=== PATIENT | female | born 1945 | race Two or more races ===

== ENCOUNTER 2016-05-09 09:40 | Day surgery (SDC) | payer BC ==
[~2016-05-09] VITALS: Ht 170.2 cm; Wt 125.0 kg
[2016-05-09] VITALS (13 sets, daily range): BP systolic 150–188; BP diastolic 63–82; PULSE 70–90; RESP 11–19; Ht 170.2 cm; Wt 125.0 kg
[~2016-05-09 09:40] MED LIST: CEFAZOLIN 2 GM/50 ML (PMX) 50 ML IVPB ONE; EPHEDrine SULFATE 50 MG/5 ML SYG ONE; SOD CHLORIDE 0.9% 1,000 ML IV SCH
--- NOTE | 2016-05-09 10:56 | RADRPT ---
PROCEDURE: XR Chest. CLINICAL INDICATION: Preoperative, breast cancer TECHNIQUE: Single frontal view of the chest was obtained. COMPARISON: None FINDINGS: The heart is within normal limits. The thoracic aorta is calcified. There is elevation of the right diaphragm. The lungs are clear. There is no pleural effusion or pneumothorax. RPTAT: AA IMPRESSION: No acute disease. Calcified aorta consistent with atherosclerotic disease. .Torsten Blake MD, MD Date Time Electronically viewed and signed by .Torsten Blake MD, on 05/09/2016 10:55 .S/
[2016-05-09] MEDS ORDERED: ATOR40TA68 PO (10:57)
[2016-05-09] MEDS ORDERED: ASPI325T4 PO (10:57)
[2016-05-09] MEDS ORDERED: METF-382 PO (10:57)
[2016-05-09] MEDS ORDERED: AMLO1CAP15 PO (10:57)
[2016-05-09] MEDS ORDERED: LOSA1TAB20 PO (10:57)
[2016-05-09] MEDS ORDERED: LANT3I SC (10:57)
[2016-05-09] MEDS ORDERED: GLIM4TAB PO (10:57)
[2016-05-09] MEDS ORDERED: LIRA0.6P2 SQ (10:57)
[2016-05-09] MEDS ORDERED: METO25TA7 PO (10:57)
[2016-05-09 10:58] LABS: BASOPHILS % 0.5 % (0.0-2.0); EOSINOPHILS # 0.4 10^3/ul (0.0-0.5); EOSINOPHILS % 4.7 % (0.0-7.0); HEMATOCRIT 39.6 % (37.0-47.0); HEMOGLOBIN 13.4 g/dl (12.0-16.0); LYMPHOCYTES # 2.5 10^3/ul (0.8-2.9); LYMPHOCYTES % 31.7 % (15.0-51.0); MEAN CORPUSCULAR HEMOGLOBIN 29.6 pg (29.0-33.0); MEAN CORPUSCULAR HGB CONC 33.8 g/dl (32.0-37.0); MEAN CORPUSCULAR VOLUME 87.8 fl (82.0-101.0); MEAN PLATELET VOLUME 9.5 fl (7.4-10.4); MONOCYTE # 0.6 10^3/ul (0.3-0.9); MONOCYTES % 8.1 % (0.0-11.0); NEUTROPHIL # 4.3 10^3/ul (1.6-7.5); PLATELET COUNT 134 10^3/UL (140-440); RED BLOOD COUNT 4.51 10^6/ul (4.20-5.40); RED CELL DISTRIBUTION WIDTH 13.1 % (11.5-14.5); UNCORRECTED WBC 7.8 10^3/ul (4.8-10.8); WHITE BLOOD COUNT 7.8 10^3/ul (4.8-10.8)
[2016-05-09 11:07] LABS: CONDITION 1
[2016-05-09 11:09] LABS: INR 1.03; PROTIME 13.5 Sec (12.2-14.2); PT RATIO 1.1
[2016-05-09 11:28] LABS: CALCIUM 8.6 mg/dl (8.4-10.2); CREATININE 0.51 mg/dl (0.44-1.00)
[2016-05-09] MEDS ORDERED: D5W-0.45 NACL + KCL 20 MEQ 1,000 ML IV SCH (13:43)
[2016-05-09] MEDS ORDERED: MIDAZOLAM 1 MG/ML 2 ML INJ ONE (13:49)
[2016-05-09] MEDS ORDERED: LIDOCAINE 2% (SDV) 5 ML INJ ONE (13:49)
[2016-05-09] MEDS ORDERED: PROPOFOL 20 ML ONE (13:49)
[2016-05-09] MEDS ORDERED: ACETAMINOPHEN 1000MG/100ML IV 100 ML IVPB PRN (14:00)
[2016-05-09] MEDS ORDERED: morphine 2 MG INJ IV PRN (14:00)
[2016-05-09] MEDS ORDERED: ONDANSETRON 4 MG INJ IV PRN ×2 (14:00→14:30)
[2016-05-09] MEDS ORDERED: ETOMIDATE 20 MG INJ ONE ×2 (14:01→14:23)
[2016-05-09] MEDS ORDERED: FENTAnyl 50 MCG/ML VIAL ONE (14:09)
[2016-05-09] MEDS ORDERED: ISOSULFAN BLUE 1% 5 ML INJ SC ONE (14:10)
[2016-05-09] MEDS ORDERED: FAMOTIDINE 20 MG INJ ONE (14:13)
[2016-05-09] MEDS ORDERED: METOCLOPRAMIDE 10 MG INJ ONE (14:13)
[2016-05-09] MEDS ORDERED: ONDANSETRON 4 MG INJ ONE (14:13)
[2016-05-09] MEDS ORDERED: HYDROmorphONE 2 MG/ML SYG ONE (14:20)
[2016-05-09] MEDS ORDERED: HYDROmorphONE (0.2 MG/ML) 10ML SYG IV PRN (14:30)
[2016-05-09] MEDS ORDERED: PROCHLORPERAZINE 10 MG INJ IV PRN (14:30)
[2016-05-09] MEDS ORDERED: OXYCODONE/ACETAMINOPHEN (5/325) TAB PO PRN (14:30)
[2016-05-09] MEDS ORDERED: hydrALAzine 20 MG INJ IV PRN ×2 (14:30→17:00)
[2016-05-09] MEDS ORDERED: MEPERIDINE 25 MG INJ IV PRN (14:30)
[2016-05-09] MEDS ORDERED: DIPHENHYDRAMINE 50 MG INJ IV PRN (14:30)
[2016-05-09] MEDS ORDERED: FENTAnyl 50 MCG/ML VIAL IV PRN (14:30)
[2016-05-09] MEDS ORDERED: LABETALOL HCL 20MG INJ IV PRN (14:30)
[2016-05-09 14:43] LABS: PARTIAL THROMBOPLASTIN TIME 22.6 Sec (25.0-35.0)
[2016-05-09] MEDS ORDERED: DEXTROSE 50% 50 ML SYRINGE IV PRN ×2 (17:00)
[2016-05-09] MEDS ORDERED: GLUCOSE GEL 15 GRAM TUBE BUCCAL PRN (17:00)
[2016-05-09] MEDS ORDERED: GLUCOSE GEL 15 GRAM TUBE PO PRN ×2 (17:00)
[2016-05-09] MEDS ORDERED: GLUCAGON 1 MG INJ IM PRN (17:00)
--- NOTE | 2016-05-09 17:11 | OPR ---
DATE OF OPERATION: 05/09/2016 PREOPERATIVE DIAGNOSIS: Locally advanced right breast cancer. POSTOPERATIVE DIAGNOSIS: Locally advanced right breast cancer. OPERATION PERFORMED: Right partial mastectomy and axillary dissection. ANESTHESIA: General. ANESTHESIOLOGIST: Dr. Guerrero SURGEON: Prem Lopez MD LOADING UNIT TOOL SETTER: Dr. Guthrie INDICATIONS FOR PROCEDURE: The patient is an unfortunate 70-year-old female who presented with a la rge firm mass in the upper outer quadrant of her right breast and clinically palpable axillary lymph adenopathy. She was counseled as to the risks versus benefits of surgery. She consented and was sc heduled for surgery. DESCRIPTION OF PROCEDURE: The patient was brought to the operating theater, placed under general an esthesia. The right breast and axillary region was prepped and draped in usual sterile fashion. At tention was first directed to performing partial mastectomy. The firm palpable mass was at approxim ately the 9 to 11 o'clock location of the right breast. A curvilinear incision was made over it. S ubcutaneous tissue was dissected with cautery. Wide circumferential dissection of the tissue associ ated with the mass then took place, taking care to attempt to ensure adequate margin. The specimen was elevated, transected, oriented, and sent for permanent pathologic analysis. The attention was t hen directed to the right axilla. A 5 cm incision was made in the right axillary hairline. Subcuta neous tissue was dissected with cautery down to the clavipectoral fascia. Dissection continued ante riorly until the border of the pectoralis major muscle was identified. Subsequently the pectoralis minor muscle was identified. Blunt dissection along the chest wall allowed for visualization of the long thoracic nerve which was kept out of harm's way. There was visually obvious evidence of metas tatic disease. More superiorly, the axillary vein was dissected from medial to lateral. The thorac odorsal neurovascular bundle was then identified, dissected throughout its course, and kept out of h arm's way. Load bearing tissue between the long thoracic nerve and the thoracodorsal nerve was meti culously harvested. Significant lymphovascular structures were controlled with either Hemoclips or the LigaSure device. In this fashion, the entire level 1 and level 2 lymph segundo basin was resected and removed and sent for permanent pathologic analysis. The wound was irrigated. Minimal bleeding was controlled with cautery. A #10 M[place]gasque Atul-Genao drain was then brought through the right m id axillary line. It was cut to size and laid within the axilla. It was secured in place with 2-0 nylon suture in the standard fashion. Both incisions were then closed with 4-0 Vicryl sutures in lemus bcuticular fashion, and benzoin and Steri-Strips were applied. The patient tolerated the procedure well. The estimated blood loss was approximately 100 mL. There were no complications, and the alxeandra ent was transported in stable condition to the recovery room. Dictated By: PREM CHINO/AMEENA Conf#: [id number] DID#: [id number]
[2016-05-09] MEDS: INSULIN ASPART [NOVOLOG] 3 ML PEN SC SCH ×2 (17:21→21:00)
[2016-05-09] MEDS: metFORMIN 500 MG TAB PO SCH (17:55)
[2016-05-09] MEDS: 1/2 NS + KCL 20 MEQ 1,000 ML IV SCH (18:14)
--- NOTE | 2016-05-09 18:42 | RADRPT ---
Vent Rate: 90 bpm RR Interval: 0 msec AL Interval: 180 msec QRS Duration: 134 msec QT Interval: 408 msec QTC Interval: 499 msec P-R-T [place]: 69 - -14 - 108 degrees Normal sinus rhythm Left bundle branch block Abnormal ECG Electronically Signed By: Chava Choe [id number]
[2016-05-09] MEDS ORDERED: ATORVASTATIN 40 MG TAB PO SCH (21:00)
[2016-05-09] MEDS ORDERED: INSULIN GLARGINE [LANtus] 3 ML PEN SC SCH (21:00)
[2016-05-09] MEDS: METOPROLOL (XL) 25 MG TAB PO SCH (21:15)
[2016-05-10 02:00] VITALS: BP 145/72; PULSE 71; RESP 17
[2016-05-10] MEDS: 1/2 NS + KCL 20 MEQ 1,000 ML IV SCH (02:00)
--- NOTE | 2016-05-10 02:23 | HP ---
DATE OF ADMISSION: 05/09/2016 HISTORY OF PRESENT ILLNESS: The patient is a 70-year-old female with past medical history positive for hypertension, diabetes and hyperlipidemia. The patient was diagnosed with invasive cancer of th e right breast and the patient underwent right partial mastectomy with an axillary dissection. The patient experienced some significant postoperative pain and the patient will be admitted for further evaluation and management to medical/surgical floor. PAST MEDICAL HISTORY: Per HPI. PAST SURGICAL HISTORY: The patient denies having any surgeries in the past. SOCIAL HISTORY: The patient lives at home with her family. The patient denies any tobacco use, den ies any alcohol use, denies any illicit drug use. ALLERGIES: NO KNOWN ALLERGIES. MEDICATIONS ON ADMISSION: 1. Aspirin. 2. Atorvastatin. 3. Glimepiride. 4. Lantus. 5. Metformin. 6. Toprol XL. 7. Amlodipine. 8. Benazepril. 9. Victoza. 10. Cozaar/hydrochlorothiazide. REVIEW OF SYSTEMS: A 12-point review of systems is negative unless what mentioned in the HPI. PHYSICAL EXAMINATION: GENERAL: Well-developed, obese female currently awake, alert. VITAL SIGNS: Temperature is 97.9, pulse is 88, blood pressure 175/70, respiratory rate 18, oxygen s aturation 97% on 3 liters nasal cannula. HEENT: Head is atraumatic, normocephalic. Pupils equal and round, reactive to light and accommodat ion. Oral mucosa is pink, moist. NECK: Supple, no cervical lymphadenopathy, no thyromegaly. CHEST: Lungs clear bilaterally. There is no rhonchi, wheezes, rales noted. CARDIOVASCULAR: Normal S1, S2. No murmurs, gallops, clicks, rubs noted. ABDOMEN: Protuberant, soft, nondistended, nontender. Bowel sounds present. There is no guarding, no rebound tenderness. EXTREMITIES: Mild edema. Pulses equal bilaterally 2+. SKIN: There is no rash, petechiae noted. NEUROLOGIC: The patient is awake, alert and oriented x3, no focal deficits noted. MUSCULOSKELETAL: Motor strength is 5/5 in all extremities. BREAST: The patient has right breast after surgery with axillary YAIR. LABORATORY DATA: On admission, CBC: White blood cells 7.8, hemoglobin 13.4, hematocrit 39.6, plate lets 134. Chemistry: Sodium is 141, potassium 4.0, chloride 102, carbon dioxide 30, anion gap 13, BUN is 10, creatinine ____, glucose 178, calcium 8.6. PT is 13.5, INR is 1.03, aPTT is 22.6. IMAGING: Chest x-ray with no acute disease, calcified aorta consistent with atherosclerotic disease . ASSESSMENT AND PLAN: 1. Invasive cancer of the right breast status post partial mastectomy with axillary dissection. 2. Hypertension. 3. Hyperlipidemia. 4. Diabetes mellitus. 5. Morbid obesity. Admit the patient to medical/surgical floor, morphine and Tylenol p.r.n. for pain, Zofran p.r.n. for nausea. We will resume the patient's home medications. Continue Accu-Cheks before meals and at be dtime with moderate algorithm coverage. Continue the patient's blood pressure medications, continue hydralazine p.r.n. for systolic blood pressure above 170. Sequential compression devices for deep venous thrombosis prophylaxis and Pepcid for peptic ulcer di sease prophylaxis. Further recommendations based on clinical course. Plan of care discussed with Zonia Andrade. Dictated By: CHARLIE IVY TROUBLE DISPATCHER for RAFA ANDRADE MD SR/NTS Conf#: [id number] DID#: [id number] CC: RAFA ANDRADE MD;*EndCC*
[2016-05-10] MEDS ORDERED: GLIMEPIRIDE 4 MG TAB PO SCH (07:50)
[2016-05-10 08:27] VITALS: BP 149/67; RESP 18
[2016-05-10] MEDS: metFORMIN 500 MG TAB PO SCH ×2 (08:53→12:42)
[2016-05-10] MEDS: METOPROLOL (XL) 25 MG TAB PO SCH (08:54)
[2016-05-10 08:56] LABS: CREATININE 0.51 mg/dl (0.44-1.00)
[2016-05-10 08:57] LABS: CALCIUM 8.9 mg/dl (8.4-10.2)
[2016-05-10] MEDS: INSULIN ASPART [NOVOLOG] 3 ML PEN SC SCH ×2 (08:58→11:40)
[2016-05-10] MEDS ORDERED: HYDROCHLOROTHIAZIDE 25 MG TAB PO SCH (09:00)
[2016-05-10] MEDS ORDERED: BENAZEPRIL 40 MG TAB PO SCH (09:00)
[2016-05-10] MEDS ORDERED: LOSARTAN 50 MG TAB PO SCH (09:00)
[2016-05-10] MEDS ORDERED: FAMOTIDINE 20 MG TAB PO SCH (09:00)
[2016-05-10] MEDS ORDERED: AMLODIPINE 10 MG TAB PO SCH (09:00)
[2016-05-10] MEDS ORDERED: NON-FORMULARY/PATIENT OWN MED (Liraglutide (Victoza 3-Pak) 1.8 MG) SQ SCH (09:00)
[2016-05-10 10:31] LABS: HEMATOCRIT 39.3 % (37.0-47.0); HEMOGLOBIN 12.9 g/dl (12.0-16.0); RED BLOOD COUNT 4.41 10^6/ul (4.20-5.40); WHITE BLOOD COUNT 9.1 10^3/ul (4.8-10.8)
[2016-05-10 10:32] LABS: EOSINOPHILS # 0.3 10^3/ul (0.0-0.5); EOSINOPHILS % 2.9 % (0.0-7.0); LYMPHOCYTES # 3.1 10^3/ul (0.8-2.9); LYMPHOCYTES % 34.1 % (15.0-51.0); MEAN CORPUSCULAR HEMOGLOBIN 29.3 pg (29.0-33.0); MEAN CORPUSCULAR HGB CONC 32.8 g/dl (32.0-37.0); MEAN CORPUSCULAR VOLUME 89.1 fl (82.0-101.0); MEAN PLATELET VOLUME 12.4 fl (7.4-10.4); MONOCYTE # 0.9 10^3/ul (0.3-0.9); MONOCYTES % 9.9 % (0.0-11.0); NEUTROPHIL # 4.7 10^3/ul (1.6-7.5); NEUTROPHILS % 51.8 % (39.0-77.0); PLATELET COUNT 137 10^3/UL (140-440); RED CELL DISTRIBUTION WIDTH 12.9 % (11.5-14.5)
[2016-05-10 10:33] LABS: BASOPHIL # 0.1 10^3/ul (0.0-0.1)
[2016-05-10] MEDS ORDERED: HYDR-906 PO (12:20)
--- NOTE | 2016-05-10 12:23 | DS ---
Date/Time of Note Date/Time of Note DATE: 05/10/16 TIME: 12:22 Discharge Summary Admission/Discharge Info Admit Date/Time 05/09/16 Discharge Date/Time 05/10/16 Final Diagnosis breast cancer Patient Condition: Fair Consults surgery Hospital Course Patient came in for mastectomy for breast cancer. Patient tolerated the procedure and when felt to be stable per surgery, she was sent home. Home Meds Reported Medications Aspirin* (Aspirin*) 325 Mg Tablet, 325 MG PO DAILY, TAB 05/09/16 Losartan-Hydrochlorothiazide (Losartan-HCTZ) 100-25 Mg Tab, 1 TAB PO DAILY, TAB 05/09/16 Atorvastatin* (Atorvastatin*) 40 Mg Tablet, 40 MG PO QHS, #30 TAB 05/09/16 Insulin Glargine* (Lantus*) 100 Unit/Ml Soln, 45 UNIT SC QHS, #1 VIAL 05/09/16 Liraglutide (Victoza 3-Armond) 0.6 Mg/0.1 Ml Pen.injctr, 1.8 MG SQ DAILY, SYR 05/09/16 Glimepiride* (Glimepiride*) 4 Mg Tablet, 4 MG PO WITH BREAKFAST, TAB 05/09/16 Metoprolol Succinate* (Toprol XL*) 25 Mg Tab.sr.24h, 25 MG PO BID, #30 TAB 05/09/16 Metformin Hcl* (Metformin Hcl*) 500 Mg Tablet, 500 MG PO WITH MEALS, #90 TAB 05/09/16 Amlodipine-Benazepril (Amlodipine-Benazepril) 10-40 Mg Capsule, 1 TAB PO DAILY, #30 TAB 05/09/16 Pending Labs Laboratory Tests Test 05/09/16 13:07 05/09/16 15:29 05/09/16 17:16 05/09/16 21:11 Activated Partial Thromboplast Time 22.6Sec (25.0-35.0) INR International Normalized Ratio 1.03 Prothrombin Time 13.5Sec (12.2-14.2) Prothrombin Time Ratio 1.1 Bedside Glucose 128mg/dL (70-220) 137mg/dL (70-220) 174mg/dL (70-220) Test 05/10/16 07:49 05/10/16 08:00 05/10/16 08:08 05/10/16 11:32 Bedside Glucose 200mg/dL (70-220) 281mg/dL (70-220) Anion Gap 15 (8-16) Blood Urea Nitrogen 8mg/dl (7-20) Calcium Level 8.9mg/dl (8.4-10.2) Carbon Dioxide Level 29mmol/L (21-31) Chloride Level 100mmol/L (97-110) Creatinine 0.51mg/dl (0.44-1.00) Glucose Level 201mg/dl (70-220) Potassium Level 4.0mmol/L (3.5-5.1) Sodium Level 140mmol/L (135-144) Basophils # 0.110^3/ul (0.0-0.1) Basophils % 1.0% (0.0-2.0) Eosinophils # 0.310^3/ul (0.0-0.5) Eosinophils % 2.9% (0.0-7.0) Hematocrit 39.3% (37.0-47.0) Hemoglobin 12.9g/dl (12.0-16.0) Lymphocytes # 3.110^3/ul (0.8-2.9) Lymphocytes % 34.1% (15.0-51.0) Mean Corpuscular Hemoglobin 29.3pg (29.0-33.0) Mean Corpuscular Hemoglobin Concent 32.8g/dl (32.0-37.0) Mean Corpuscular Volume 89.1fl (82.0-101.0) Mean Platelet Volume 12.4fl (7.4-10.4) Monocytes # 0.910^3/ul (0.3-0.9) Monocytes % 9.9% (0.0-11.0) Neutrophils # 4.710^3/ul (1.6-7.5) Neutrophils % 51.8% (39.0-77.0) Nucleated Red Blood Cells # 0.010^3/ul (0.0-0.0) Nucleated Red Blood Cells % 0.0/100WBC (0.0-0.0) Platelet Count 16017^3/UL (140-440) Red Blood Count 4.4110^6/ul (4.20-5.40) Red Cell Distribution Width 12.9% (11.5-14.5) White Blood Count 9.110^3/ul (4.8-10.8) MANJU PATEL May 10, 2016 12:23
[2016-05-10] MEDS ORDERED: [UNRECOGNIZED DRUG - REMARK] XX SCH (13:30)
--- NOTE | 2016-05-10 13:38 | PN ---
DATE: 05/10/2016 Postoperative day #1 status post right breast partial mastectomy with axillary dissection. SUBJECTIVE: No complaints. OBJECTIVE: Vital signs: Temperature 98.4, pulse 71, respiratory rate 18, blood pressure 149/67 and saturation is 97%. ABDOMEN: Atul-Genao drain has been draining serosanguineous fluid, a total of 285 mL since the o peration. This morning from 6:00 a.m. until now, which is 1 p.m., it has drained about 35 mL. The Atul-Genao drain is in place. EXTREMITIES: The patient moves her right hand and upper extremity easily. The dressing was adjuste d. Discussed with the patient's daughter, instructed care of the Atul-Genao drain and measurement of the drainage for every day. The patient has an appointment this coming Thursday to see Dr. Lopez in the office. The patient will be discharged home today. Dictated By: DANIEL BOLIVAR/AMEENA Conf#: [id number] DID#: [id number]
== END 2016-05-10 13:41 | disposition home or self-care (01) ==
LOC: SDS 09:40 → MS1 16:40 → SDS 05-10 13:41
PROVIDERS: ATTEND Surgery Surgical Oncology
DX: D05.11 Intraductal carcinoma in situ of right breast (principal); C77.3 Secondary and unspecified malignant neoplasm of axilla and upper limb lymph nodes; E78.5 Hyperlipidemia, unspecified; E11.9 Type 2 diabetes mellitus without complications; I25.10 Atherosclerotic heart disease of native coronary artery without angina pectoris; E66.9 Obesity, unspecified; Z68.41 Body mass index [BMI] 40.0-44.9, adult
CPT/HCPCS: 19301; 38500; 71010; 80048; 82962; 85025; 85610; 85730; 88307; 93005; J0131; J1170; J1815; J2250; J2405; J2765; J3010; J3480; Z7512; Z7610; Q9968